=== PATIENT | female | born 1960 | race African-American/Black ===

== ENCOUNTER → 2018-06-22 14:15 | Outpatient (CLI) | payer SELFPAY ==
--- NOTE | 2018-06-22 | IMM_PTH ---
PATIENT: YAO SCHULER LOC: [facility] U#:[id number] AGE/SX: 64/F ROOM: RE06/22/[address]: Dr. Hema Roman MD : 1960 BED: DIS: SPEC #: [id number] RECD: 06/23/18 10:29 STATUS: KAREEM PERCY #: [id number] TAWANNA: 06/22/18 00:[address]: Hema Roman DEPT: IMMUNOHISTOCHEMISTRY RECD BY: Melyssa Hdz Tissues: A - Right breast, NOS Procedures: CALPONIN-1 (add) CK5-6 (add) CK8 (add) E-CAD (add) HER2 JOSE (add) KI-67 (add) P53 (add) NY (add) P40 (add) ER (initial) PHYSICIAN & INSTITUTION [place] [id number] SPECIMEN INFORMATION: Tissue Source: A ? Right breast Clinical Info: Abnormal right breast ultrasound Specimen Number: [id number] CPT code: 04840, 50075 x6, 41896 x3 METHODOLOGY: Deparaffinized sections of prefer/formalin-fixed tissue or PAP/DQ stained slides are incubated with monoclonal/polyclonal antibodies/oligonucleotide probes. Localization is made via biotin free immunoperoxidase method. Appropriate controls are performed and reacted as expected. Results on target cell population are indicated in the following table: RESULTS: ANTIBODY / CLONE RESULT Block A E-Cad (ECH-6) positive CK8 (80vfxuK49) positive CK5-6 (D5 & 1684) negative Ki-67 (30-9) positive, high P53 (DO-7) positive, high P40 (BC28) negative Calponin-1 (KS281D) negative MORPHOMETRIC ANALYSIS ER (clone 6F11) 21%, weak NY (clone 16/1E2) 4%, weak Her-2Neu (clone CB11) 1+ The prognostic test for HER2 is performed on formalin-fixed paraffin embedded tissue. A 3+ (positive) staining pattern is defined as intense, homogeneous, complete, circumferential membranous staining in >10% of contiguous tumor cells. A similar weak (2+) staining pattern is interpreted as equivocal. GLORY follow-up testing is recommended for all equivocal cases. Positivity/negativity for ER/NY is reported if > or < 1% of the tumor cells are immuno- reactive, respectively. The ASCO/CAP criteria is used for scoring. Reference: Journal of Clinical Oncology, 2013; 31:0046-5032 & 2010; 16:7363-4209. Duration of fixation: 5.5 Hrs; Sample Adequate: Yes. These assays have not been validated on decalcified tissues. Results should be interpreted with caution given the likelihood of false negativity on decalcified specimens. These tests were developed and their performance characteristics determined by [facility]. They may not have been cleared or approved by the U.S. Food and Drug Administration. The FDA has determined that such clearance or approval is not necessary. INTERPRETATION: Right breast, core biopsy: Invasive ductal carcinoma, nuclear grade 3. Positive for estrogen receptors (favorable prognostic indicator). Positive for progesterone receptors (favorable prognostic indicator). Negative for overexpression of [id number]. SJ:vita 06/24/18
--- NOTE | 2018-06-22 14:15 | BRBX_PTH ---
PATIENT: YAO SCHULER LOC: [facility] U#:[id number] AGE/SX: 64/F ROOM: RE06/22/[address]: Dr. Hema Roman MD : 1960 BED: DIS: SPEC #: [id number] RECD: 06/22/18 15:15 STATUS: KAREEM PERCY #: [id number] TAWANNA: 06/22/18 14:[address]: Hema Roman DEPT: SURGICAL PATHOLOGY RECD BY: Gerard Pacheco Tissues: A - Right breast, NOS B - Right axillary region Procedures: Surgery Specimen Level IV HEADER OPERATION: Core biopsy right breast and axilla PRE-OP DIAGNOSIS: Abnormal right breast ultrasound TISSUE SUBMITTED: A ? Right breast, B ? Right axilla ISCHEMIC TIME: 1 minute FIXATION TIME: 5.5 hours MICROSCOPIC DIAGNOSIS A. Right breast, core biopsy: Invasive ductal carcinoma, nuclear grade 3 (0.9 cm in greatest dimension). See comment. B. Right axilla, core biopsy: Consistent with metastatic invasive ductal carcinoma (0.8 cm in greatest dimension). Lymph node tissue is not identified in the submitted specimen. SJ:rg 06/23/18 COMMENT A. Immunohistochemistry ([id number]) supports the above diagnosis. ER/RI/[place] studies are being performed on sections of tumor and the results from this study will be reported separately ([id number]). The tumor in specimen A & B have similar morphologic appearance. Case has been reviewed in consultation with Dr. Alatorre who concurs with the above diagnosis. IDC:AM MICROSCOPIC DESCRIPTION Slides are reviewed. GROSS DESCRIPTION A - Received in fixative is one container labeled with the patient's name and designated right breast. The specimen consists of an elongated piece of [place] fibroadipose tissue measuring 1.5 cm in length and 0.1 cm in diameter. The specimen is totally submitted in one cassette. B - Received in fixative is one container labeled with the patient's name and designated right axilla. The specimen consists of an elongated piece of [place]-yellow fibroadipose tissue measuring 1.5 cm in length and 0.1 cm in diameter. The specimen is totally submitted in one cassette. / SJ:rg 06/22/18 TC:0 [facility]: [id number] x2 ADDENDUM ADDENDUM ADDENDUM ADDENDUM ADDENDUM ADDENDUM ADDENDUM ADDENDUM ADDENDUM ADDENDUM ADDENDUM ADDENDUM ADDENDUM ADDENDUM ADDENDUM ADDENDUM 08/16/2018 08:59 ADDENDUM 08/07/2025 12:09 ADDENDUM 08/16/2018 08:59 ADDENDUM 08/16/2018 08:59 ADDENDUM 08/16/2018 08:59 ADDENDUM 08/16/2018 08:59 This addendum is added to incorporate an outside pathology consultation report. The case was examined at [facility] (#[id number]) and the following diagnosis was rendered. A. Breast, right, biopsy: Invasive ductal carcinoma, grade 3 of 3. Breast biomarkers: ER: Positive (20%, weak) RI: Positive (2-5%, weak) HER2 IHC: Negative (1+) B. Lymph node, right axilla, core biopsy: Metastatic ductal carcinoma, measuring at least 8 mm. Please see complete above mentioned consultation report in EMR This addendum is added to incorporate an outside pathology consultation report. The case was examined at [facility]. following diagnosis was rendered. Breast Cancer Index (BCI) Report: A. Right breast, core biopsy: After attempting to contact the patient via phone and mail outreach, the [facility] Patient Services team has been unable to reach the patient to confirm testing. Therefore, we are unable to proceed with BCI testing. Please see complete above mentioned consultation report in EMR
== END ==
PROVIDERS: Visit Provider Surgery
DX: R92.8 Other abnormal and inconclusive findings on diagnostic imaging of breast (principal)
CPT/HCPCS: 88305; 88341; 88342

== ENCOUNTER → 2018-06-26 11:17 | Outpatient (CLI) | payer SELFPAY ==
--- NOTE | 2018-06-26 11:58 | CT_ITS ---
STUDY: CT CHEST WITH CONTRAST REASON FOR EXAM: Female, 57 years old. New diagnosis of right breast cancer. RADIATION DOSAGE (If Supplied By Facility): CTDIvol = ( 12.82 ) mGy, DLP = ( 923.56 ) mGycm TECHNIQUE: Transaxial imaging was performed following intravenous administration of 100 ml of Isovue 300 contrast material. Individualized dose optimization techniques were used for this CT. COMPARISON: None. FINDINGS: The lungs are normal. There is no demonstrated pleural abnormality. Normal heart and pericardium. Normal mediastinum. Normal hilar regions. Normal enhanced pulmonary arteries. Normal aorta arch and descending thoracic aorta. There are pathologically enlarged right axillary lymph nodes measuring up to 1.3 and 1.2 cm in short axis. Within the right lateral breast there is a enhancing 1.8 x 1.8 x 2.4 cm soft tissue mass that contains a clip that likely reflects the patient's known neoplastic process. Normal osseous structures. Please note there is a separate dedicated CT report of the abdomen and pelvis. CT/Chest WITH Contrast IMPRESSION: Right breast mass consistent with known malignancy. Pathologically enlarged axillary lymph nodes concerning for underlying neoplastic involvement. No intrathoracic metastases identified. Electronically Signed: Marisol Ashley MD at 22:20 EDT Tel , Service support ,
--- NOTE | 2018-06-26 11:59 | CT_ITS ---
STUDY: CT ABDOMEN AND PELVIS WITH CONTRAST REASON FOR EXAM: Female, 57 years old. New diagnosis of right breast cancer. RADIATION DOSAGE (If Supplied By Facility): CTDIvol = ( 12.82 ) mGy, DLP = ( 923.56 ) mGycm TECHNIQUE: Transaxial images were obtained from the dome of the diaphragm to the symphysis pubis without oral contrast. 100 ml of Isovue 300 contrast was administered. Sagittal and coronal images were reconstructed. Individualized dose optimization techniques were used for this CT. COMPARISON: None. FINDINGS: Please note there is a separate dedicated CT report of the chest. There are scattered well-circumscribed too small to characterize low-attenuation foci throughout the liver. Normal gallbladder and extrahepatic biliary system. Normal spleen. Normal pancreas. Normal bilateral adrenal glands. Normal right kidney. Normal left kidney. Normal visualized stomach. Normal small intestine. Normal colon. The appendix is visualized and appears normal. Normal abdominal aorta. Normal inferior vena cava. Normal retroperitoneum. Normal urinary bladder. Normal abdominal wall. There are mild degenerative changes of the lumbar spine. CT/Abdomen/Pelvis WITH Contrast IMPRESSION: Indeterminate too small to characterize low-attenuation hepatic foci that likely reflect underlying cysts and/or hemangiomas however given history of breast cancer recommend an MRI for further evaluation for cannot entirely exclude underlying metastases. Electronically Signed: Marisol Ashley MD at 22:32 EDT Tel , Service support ,
[2018-06-26 12:38] LABS: Anion Gap 6 (5-15); BUN 10 mg/dL (7-18); BUN/Creat Ratio 11.6 RATIO (10-20); Calcium,Total 9.1 mg/dL (8.5-10.1); Chloride 106 mmol/L (98-107); Creatinine, Serum 0.86 mg/dL (0.55-1.02); EST Glomerular Filtration Rate 71 mL/min (>60); Est Glom Filt Rate - Afr Amer 86 mL/min (>60); Glucose 91 mg/dL (74-106); Sodium Level 142 mmol/L (136-145)
== END ==
PROVIDERS: Visit Provider Internal Medicine Cardiovascular Disease
DX: C50.911 Malignant neoplasm of unspecified site of right female breast (principal)
CPT/HCPCS: 36415; 71260; 74177; 80048; Q9967; A4216